=== PATIENT | male | born 1980 | race Caucasian/White ===

== ENCOUNTER 2022-04-25 08:33 | Observation (INO) ==
[2022-04-25] MEDS ORDERED: NITROGLYCERIN SL 0.4 MG/TAB TAB SL PRN (08:40)
[2022-04-25] MEDS ORDERED: ASPIRIN CHEW 324 MG PO STA (08:40)
[2022-04-25] MEDS ORDERED: ONDANSETRON INJ 2 MG/ML 2 ML VIAL IV STA (08:47)
[2022-04-25] MEDS ORDERED: HYDROmorphone INJ 0.5 MG/0.5 ML SYR IV STA (08:47)
[2022-04-25 09:05] LABS: Basophils # (auto) 0.01 K/uL (0-0.2); Basophils % (auto) 0.1 %; Eosinophils # (auto) 0.01 K/uL (0-0.5); Eosinophils % (auto) 0.1 %; Hematocrit (blood only) 43.8 % (42-52); Hemoglobin 14.9 g/dL (14.0-18.0); Immature Granulocytes # (auto) 0.03 K/uL (0.00-0.02); Immature Granulocytes % (auto) 0.3 %; Lymphocytes # (auto) 1.11 K/uL (1.2-3.4); Lymphocytes % (auto) 12.2 %; Mean Corpuscular Volume 85.4 fL (80-100); Mean Platelet Volume 9.6 fL (7.4-10.4); Monocytes % (auto) 5.5 %; Neutrophils # (auto) 7.41 K/uL (1.4-6.5); Neutrophils % (auto) 81.8 %; Platelet Count 221 K/uL (130-400); RDW Coefficient of Variation 12.6 % (11.5-14.5); RDW Standard Deviation 39.3 fL (36.4-46.3); Red Blood Count 5.13 M/uL (4.7-6.1); White Blood Count 9.07 K/uL (4.8-10.8)
[2022-04-25] MEDS ORDERED: OPTIRAY 320 125ml IV ONE (09:10)
[2022-04-25 09:26] LABS: Albumin Globulin Ratio 1.3 (0.9-2); Albumin Level 4.2 gm/dl (3.4-5.0); BUN Creatinine Ratio 17.1 (10-20); Bilirubin,Total 0.5 mg/dl (0.2-1.0); Calcium 9.7 mg/dl (8.5-10.1); Creatinine Clr Calc Pharmacy 133.7 ml/min; Est GFR (African American) 99.6 ml/min; Est GFR (Non-African American) 85.9 ml/min; Globulin 3.3 gm/dl (2.5-4.0); Total Protein 7.5 gm/dl (6.0-8.3)
--- NOTE | 2022-04-25 09:29 | CT Scan Report ---
CT ANGIOGRAPHY OF THE CHEST DISSECTION PROTOCOL CLINICAL HISTORY: Chest and abdominal pain. Hypertension. Evaluate for dissection. COMPARISON STUDY: No previous studies for comparison. TECHNIQUE: Before and following the IV administration of 118 mL of Optiray, helical axial images of t he chest were obtained. Maximal intensity projections and sagittal and coronal reformats were viewed on an independent 3D workstation. IV contrast was administered without complication. Automated exp osure control was utilized for the study. A dose lowering technique was utilized adhering to the fortunato Elaine. CT DOSE: 2443.73 mGy.cm FINDINGS: Caliber of the thoracic aorta is normal. There is no intramural hematoma or thoracic aorti c dissection. Size of the heart is normal. No pericardial effusion is present. No pulmonary emboli ar e identified although right upper lobe pulmonary arteries are suboptimally assessed due to artifact. Central airways are patent. Multiple small subpleural pulmonary nodules are likely benign. Minimal tr ee-in-bud nodules within the lungs are present. No consolidation is identified. No pneumothorax or pl eural effusion is present. No acute fracture or suspicious lesion within the bony thorax. There is le ft-sided gynecomastia. Probable hepatic steatosis. Gallbladder is partially imaged. The gallbladder m ay be mildly distended with subtle pericholecystic stranding. Upper abdomen is otherwise unremarkable . IMPRESSION: 1. No thoracic aortic dissection. 2. Minimal tree-in-bud nodules within the lungs. This may reflect bronchiolitis. 3. Possible pericholecystic stranding. Gallbladder partially imaged on this exam. Acute cholecystitis cannot be excluded. This can be assessed with right upper quadrant ultrasound which has been ordered . ACT 112: Negative or not required by law. Electronically signed by: Robert Barbour M.D. 04/25/2022 9:26 AM
[2022-04-25 09:31] LABS: Troponin I High Sensitivity 4.9 pg/ml (0-20)
--- NOTE | 2022-04-25 10:01 | Ultrasound Report ---
US gallbladder CLINICAL HISTORY: Epigastric pain to back COMPARISON STUDY: Chest CT performed earlier today. FINDINGS: Hepatic echogenicity is increased. No hepatic lesions are identified. There is no biliary d uctal dilatation. Common bile duct measures 5 mm in caliber. Multiple gallstones within the gallbladd er are noted. There is no gallbladder wall thickening. There is no pericholecystic fluid. Sonographic Glass sign was reported. Pancreas is partially obscured. No right hydronephrosis is present. IMPRESSION: 1. Cholelithiasis and sonographic Glass sign. These findings favor acute cholecystitis. No gallbladd er wall thickening. No pericholecystic fluid. 2. Hepatic steatosis. ACT 112: Negative or not required by law. Electronically signed by: Robert Barbour M.D. 04/25/2022 9:59 AM
--- NOTE | 2022-04-25 10:21 | XRay Report ---
XR chest 1V portable CLINICAL HISTORY: Chest Pain COMPARISON STUDY: Chest CT April 25, 2022 at 9:10 AM. FINDINGS: No pneumothorax or pleural effusion is noted. There is no consolidation or evidence for pul monary edema. Prominence of the cardiac silhouette and remainder of the mediastinum is likely technic al. IMPRESSION: No acute cardiopulmonary findings. ACT 112: Negative or not required by law. Electronically signed by: Robert Barbour M.D. 04/25/2022 10:19 AM
[2022-04-25] MEDS ORDERED: MoRPHine SULFATE 4 MG/ML 1 ML CARP\\VIAL IV STA (10:57)
[2022-04-25] MEDS ORDERED: ACETAMINOPHEN 1,000 MG/100 ML VIAL IV STA (10:58)
--- NOTE | 2022-04-25 11:38 | History & Physical Report ---
Date of Service April 25, 2022 Assessment & Plan (1) Acute cholecystitis due to biliary calculus: Plan: 42-year-old gentleman with acute cholecystitis. A long discussion with him concerning laparoscopic cholecystectomy, risks, benefits, postoperative course and restrictions. All his questions were answered, and he is agreeable to proceed. Consent has been obtained, and we will take him to the operating room at the earliest convenience. History of Present Illness Primary Care Provider: NO PCP 43-year-old gentleman presents with severe right upper quadrant pain radiating to his back. This began at 3:00 in the morning. He has been having a few week history of pain in his right upper quadrant which lasts for about an hour and then resolves. This pain has continued. He ate cheeseburgers last night. He did have chills and nausea but did not vomit. He denies changes in bowel habits. Ultrasound demonstrates positive Glass sign. White blood count is normal. Past Med/Surg History Social History Smoking Status: Never smoker Preferred Language: Upper Sorbian Feels Safe at Home: Yes Review of Systems Review of Systems: All systems reviewed & are unremarkable except as noted in HPI & below Physical Exam Constitutional: WD/WN, vitals as above Neck: trachea midline, no thyromegaly Respiratory: normal respiratory effort, lungs clear to auscultation Cardiovascular: RRR, no murmur, no edema Gastrointestinal (Abdomen): Inspection/Auscultation: abdomen normal to inspection; abdomen not distended Percussion/Palpation: + abdomen tender (RUQ) and abdomen soft; no guarding and abdomen not rigid Musculoskeletal: Extremities: no cyanosis and no clubbing Skin: no rashes, warm and dry Psychiatric: A+Ox3, euthymic affect Results & Data Results & Data ([facility]) Vital Signs (Past 12 Hours) Vital Signs Temp Pulse Pulse Resp BP BP Pulse Ox 04/25/22 10:30 56 L 20 131/82 96 04/25/22 09:06 78 19 134/89 97 04/25/22 08:40 20 98 04/25/22 08:37 36.4 C L 67 20 192/127 H 98 Laboratory Results 04/25/22 04/25/22 04/25/22 Range/Units 09:02 08:44 08:44 WBC 9.07 (4.8-10.8) K/uL RBC 5.13 (4.7-6.1) M/uL Hgb 14.9 (14.0-18.0) g/dL Hct 43.8 (42-52) % MCV 85.4 (80-100) fL MCH 29.0 (25-34) pg MCHC 34.0 (32-36) g/dL RDW Std Deviation 39.3 (36.4-46.3) fL RDW Coeff of Marylin 12.6 (11.5-14.5) % Plt Count 221 (130-400) K/uL MPV 9.6 (7.4-10.4) fL Immature Gran % (Auto) 0.3 % Neut % (Auto) 81.8 % Lymph % (Auto) 12.2 % Sutton % (Auto) 5.5 % Eos % (Auto) 0.1 % Baso % (Auto) 0.1 % Neut # (Auto) 7.41 H (1.4-6.5) K/uL Lymph # (Auto) 1.11 L (1.2-3.4) K/uL Sutton # (Auto) 0.50 (0.11-0.59) K/uL Eos # (Auto) 0.01 (0-0.5) K/uL Baso # (Auto) 0.01 (0-0.2) K/uL Immature Gran # (Auto) 0.03 H (0.00-0.02) K/uL Sodium 137 (136-145) mmol/L Potassium 4.0 (3.5-5.1) mmol/L Chloride 105 (98-107) mmol/L Carbon Dioxide 26 (21-32) mmol/L Anion Gap 6 (3-11) BUN 18 (6-23) mg/dl Creatinine 1.05 (0.6-1.4) mg/dl Est Cr Clr Drug Dosing 133.7 ml/min Est GFR ( Amer) 99.6 ml/min Est GFR (Non-Af Amer) 85.9 ml/min BUN/Creatinine Ratio 17.1 (10-20) Glucose 144 H (70-99(Fasting)) mg/dl Calcium 9.7 (8.5-10.1) mg/dl Total Bilirubin 0.5 (0.2-1.0) mg/dl AST 16 (13-39) U/L ALT 20 (7-52) U/L Alkaline Phosphatase 62 (34-104) U/L Troponin I High Sens 4.9 (0-20) pg/ml Total Protein 7.5 (6.0-8.3) gm/dl Albumin 4.2 (3.4-5.0) gm/dl Globulin 3.3 (2.5-4.0) gm/dl Albumin/Globulin Ratio 1.3 (0.9-2) Lipase 31 (11-82) U/L SARS-CoV-2, RNA, NAAT NEGATIVE (NEGATIVE) Diagnostic Findings US gallbladder CLINICAL HISTORY: Epigastric pain to back COMPARISON STUDY: Chest CT performed earlier today. FINDINGS: Hepatic echogenicity is increased. No hepatic lesions are identified. There is no biliary ductal dilatation. Common bile duct measures 5 mm in caliber. Multiple gallstones within the gallbladder are noted. There is no gallbladder wall thickening. There is no pericholecystic fluid. Sonographic Glass sign was reported. Pancreas is partially obscured. No right hydronephrosis is present. IMPRESSION: 1. Cholelithiasis and sonographic Glass sign. These findings favor acute cholecystitis. No gallbladder wall thickening. No pericholecystic fluid. 2. Hepatic steatosis.
[2022-04-25] MEDS ORDERED: EPINEPHrine INJ 1 MG/ML AMP ONE (11:42)
[2022-04-25] MEDS ORDERED: BUPIVACAINE 0.25% 30 ML VIAL ONE (11:42)
[2022-04-25] MEDS ORDERED: GLYCOPYRROLATE 0.2 MG/ML VIAL ONE (11:47)
[2022-04-25] MEDS ORDERED: ROCURONIUM BROMIDE 10 MG/ML 5 ML VIAL IV ONE ×2 (11:47→13:06)
[2022-04-25] MEDS ORDERED: ONDANSETRON INJ 2 MG/ML 2 ML VIAL ONE (11:47)
[2022-04-25] MEDS ORDERED: NEOSTIGMINE METHYLSULFATE 1 MG/ML 10ML VIAL ONE (11:47)
[2022-04-25] MEDS ORDERED: DEXAMETHASONE SOD INJ 4 MG/ML VIAL ONE (11:47)
[2022-04-25] MEDS ORDERED: MIDAZOLAM HCL 1 MG/ML 2ML VIAL ONE (11:47)
[2022-04-25] MEDS ORDERED: fentaNYL citrate 100 MCG/2 ML VIAL ONE ×2 (11:47→12:23)
[2022-04-25] MEDS ORDERED: PROPOFOL IV EMULSION 10 MG/ML 20 ML VIAL IV ONE (11:48)
[2022-04-25] MEDS ORDERED: LIDOCAINE 2% 2 ML VIAL/AMP(20MG/ML) INFIL ONE (11:48)
--- NOTE | 2022-04-25 11:51 | Anesthesiology Consultation ---
Date of Service April 25, 2022 Assessment & Plan (1) Encounter for pre-operative examination: Chart Review Chart Review: Acceptable Risk for Surgery History Surgery Operation Date: 04/25/22 12:00 Proposed Procedures p Laparoscopic Cholecystectomy - Justino Jimenez MD Height/Weight Height: 5 ft 11 in Weight: 150.2 kg Past Medical History Medical History (Updated 04/25/22 @ 11:52 by Dany Mahoney MD) Obesity Past Surgical History Surgical History (Updated 04/25/22 @ 11:52 by Dany Mahoney MD) No significant past surgical history Social History Smoking Status: Never smoker Physical Exam Vital Signs Last Vital Signs Temp 36.4 C L 04/25/22 08:37 Pulse 61 04/25/22 11:46 Resp 22 04/25/22 11:46 BP 116/73 04/25/22 11:46 Pulse Ox 94 04/25/22 11:46 Testing Laboratory Results 04/25/22 08:44 04/25/22 08:44 Electrocardiogram Date: 04/25/22 Findings: + NSR @ (60) Chest X-Ray Date: 04/25/22 Findings: + NAD
[2022-04-25] MEDS ORDERED: PROMETHAZINE HCL 12.5 MG in SODIUM CHLORIDE 0.9% 50 ML IV PRN ×2 (12:05→14:22)
[2022-04-25] MEDS ORDERED: KETOROLAC 30 MG/ML VIAL IV PRN (12:05)
[2022-04-25] MEDS ORDERED: ONDANSETRON INJ 2 MG/ML 2 ML VIAL IV PRN (12:05)
[2022-04-25] MEDS ORDERED: ATROPINE SULFATE 0.1 MG/ML 10ML SYR IV PRN (12:05)
[2022-04-25] MEDS ORDERED: fentaNYL citrate 100 MCG/2 ML VIAL IV PRN (12:05)
[2022-04-25] MEDS ORDERED: LABETALOL HCL IV 5 MG/ML 20ML IV PRN (12:05)
[2022-04-25] MEDS ORDERED: ceFAZolin 330 MG/ML 1 GM VIAL ONE (12:20)
[2022-04-25] MEDS ORDERED: KETOROLAC 30 MG/ML VIAL ONE (12:51)
--- NOTE | 2022-04-25 13:08 | Post Operative Brief Note ---
Immediate Post Op Note v1 Date of Surgery April 25, 2022 Pre & Post Diagnosis Operation Date: 04/25/22 12:00 Pre-Op Diagnosis: Acute cholecystitis due to biliary calculus Post-Op Diagnosis: Acute cholecystitis due to biliary calculus I identified the patient and participated in the time-out.: Yes Procedure Operation Date: 04/25/22 12:00 Actual Procedures p Laparoscopic Cholecystectomy - Justino Jimenez MD Surgeon Justino Jimenez MD Salesperson Burial Needs None Estimated Blood Loss 5 Findings Consistent with Post-Op Diagnosis Acute cholecystitis
--- NOTE | 2022-04-25 13:10 | Operative Report ---
Post Operative Report Pre & Post Diagnosis Operation Date: 04/25/22 12:00 Pre-Op Diagnosis: Acute cholecystitis due to biliary calculus Post-Op Diagnosis: Acute cholecystitis due to biliary calculus I identified the patient and participated in the time-out.: Yes Procedure Operation Date: 04/25/22 12:00 Actual Procedures p Laparoscopic Cholecystectomy - Justino Jimenez MD Surgeon Justino Jimenez MD Inside [employer] Sales None Estimated Blood Loss 5 Findings Consistent with Post-Op Diagnosis Acute cholecystitis with hydrops of the gallbladder Specimens Gallbladder Anesthesia Type General Complications No immediate complications Description of Procedure The patient was taken to the operating room, and placed supine on the operating table. A timeout was performed, perioperative antibiotics were administered, SCD boots were placed. After adequate anesthesia and analgesia was obtained, the abdomen was prepped and draped in the normal sterile fashion. Local anesthetic was injected into and around the proposed incision sites. An incision was made with a 15 blade scalpel in the supraumbilical region and carried down to the level of the fascia. The fascia was grasped with a trach hook, and a varies needle was used to enter the abdominal cavity. The abdomen was insufflated to a pressure of 15 mmHg, and a 11 mm trocar was placed in this location. A 10 mm, 30 degree laparoscope was placed into the abdominal cavity, and the abdomen was surveyed. There is a significant amount of omentum adhesed to the liver and gallbladder. Two 5 mm trochars were placed along the right costal margin, and one 5 mm trocar was placed in the subxiphoid region under direct visualization. Adhesions of the omentum to the liver and gallbladder were taken down with the hook cautery and blunt dissection. The gallbladder was significantly distended. It was drained with an 18-gauge aspiration needle of clear fluid. The gallbladder was grasped and retracted cephalad and laterally, exposing the triangle of Calot. Dissection began in the triangle with a combination of blunt dissection with the [place] dissector, and judicious use of the hook cautery. The cystic duct and cystic artery were dissected free circumferentially, and a critical view of safety was obtained. The cystic duct and cystic artery were clipped and transected, and the gallbladder was removed from the gallbladder fossa with the hook cautery. The camera was switched to a 5 mm, the gallbladder was placed in an Endo Catch bag, and removed via the supraumbilical port site. The camera was switched back to the 10 mm camera, and the abdomen was surveyed again. Hemostasis was checked and attended, and was excellent. The abdomen was copiously irrigated and suctioned free. Again hemostasis was checked and was excellent. All trochars were removed under direct visualization. The abdomen was desufflated. The fascia in the 11 mm port site was closed with a 0 Vicryl suture. The skin was closed with a running 4-0 Monocryl subcuticular stitch. Dermabond was applied. The patient tolerated the procedure without complication, and was transferred in stable condition to the PACU. All instrument, needle, and sponge counts were correct at the end of the case. I attest to the content of the Intraoperative Record and any orders documented therein. Any exceptions are noted below.
[2022-04-25] MEDS ORDERED: oxyCODONE/ACETAMINOPHEN 5mg/325mg TAB PO PRN (14:22)
[2022-04-25] MEDS ORDERED: diphenhydrAMINE Capsule 25 MG CAP PO PRN (14:22)
--- NOTE | 2022-04-25 14:24 | Anesthesiology Progress Note ---
Date of Service April 25, 2022 Anesthesia Post Procedure Vital Signs Vital Signs: Temp Pulse Pulse Resp BP BP Pulse Ox 04/25/22 13:50 36.4 C L 70 20 139/93 93 04/25/22 13:40 36.4 C L 61 17 134/86 96 04/25/22 13:30 63 16 142/87 H 99 04/25/22 13:20 36.1 C L 104 H 16 147/94 H 95 04/25/22 11:46 61 22 116/73 94 04/25/22 10:30 56 L 20 131/82 96 04/25/22 09:06 78 19 134/89 97 04/25/22 08:40 20 98 04/25/22 08:37 36.4 C L 67 20 192/127 H 98 Transfer of Care Handoff Completed per policy Notes Mental Status: alert / awake / arousable Patient Amnestic to Procedure: Yes Nausea / Vomiting: adequately controlled Pain: adequately controlled Airway Patency, RR, SpO2: stable & adequate BP & HR: stable & adequate Hydration State: stable & adequate Anesthetic Complications: no major complications apparent
[2022-04-25] MEDS: SODIUM CHLORIDE 0.9% 1000ML 1,000 ML IV SCH (14:52)
[2022-04-25] MEDS: MoRPHine SULFATE 2 MG/ML CARP IV PRN (20:37)
[2022-04-25] MEDS: ONDANSETRON INJ 2 MG/ML 2 ML VIAL IV PRN (22:42)
[2022-04-26] MEDS: MoRPHine SULFATE 2 MG/ML CARP IV PRN ×2 (01:59→12:15)
[2022-04-26] MEDS: SODIUM CHLORIDE 0.9% 1000ML 1,000 ML IV SCH ×2 (04:00→17:18)
[2022-04-26] MEDS: ENOXAPARIN INJ 40 MG/0.4 ML SYR SQ SCH (06:40)
[2022-04-26] MEDS: KETOROLAC 30 MG/ML VIAL IV PRN (07:29)
--- NOTE | 2022-04-26 08:52 | Surgery Progress Note ---
Date of Service April 26, 2022 Assessment & Plan (1) Acute cholecystitis due to biliary calculus: Plan: Postop day 1 status post lap irina for acute cholecystitis. He is doing fairly well. He denies an appetite. We will see how he does with breakfast and lunch. Encouraged him to ambulate this morning. We will plan on discharging him to home later this afternoon. We will have him return to clinic in 2 weeks. He will call with any new or concerning symptoms in the meantime. Admission and Anticipated Discharge Date Admission Date: April 25, 2022 Subjective Postop day 1 status post lap irina. He is doing fairly well. He did have some nausea last night. His pain is under control with pain medicine. He denies fevers or chills. He has tolerated a diet last evening. Physical Exam Constitutional: WD/WN, vitals as above Neck: trachea midline, no thyromegaly Gastrointestinal (Abdomen): Inspection/Auscultation: abdomen normal to inspection and + abdominal surgical incision (Clean dry intact with Dermabond); abdomen not distended Percussion/Palpation: + abdomen tender (Mild diffuse tenderness) and abdomen soft; no guarding and abdomen not rigid Skin: no rashes, warm and dry Psychiatric: A+Ox3, euthymic affect Results & Data ([facility]) Vital Signs (Past 12 Hours) Vital Signs Temp Pulse Resp BP Pulse Ox 04/26/22 07:11 36.7 C 65 16 150/89 H 93 04/26/22 02:45 36.9 C 63 16 166/98 H 93 04/25/22 22:25 37.1 C 69 16 156/95 H 95
[2022-04-26] MEDS: ONDANSETRON INJ 2 MG/ML 2 ML VIAL IV PRN (09:41)
--- NOTE | 2022-04-26 12:09 | Emergency Department Note ---
ED Provider Note CHIEF COMPLAINT: Epigastric/chest pain HISTORY OF PRESENT ILLNESS: This 42-year-old male patient presents to the emergency department with complaints of epigastric and mid chest pain that radiates through to the back. The patient is noted to be markedly hypertensive at triage however the patient does not take blood pressure medication. He s tates he has not seen a physician in several years. He and his state they are here visiting for the weekend. They have been clearing brush and riding ATVs. He denies any trauma and difficulty with exertion. Patient states they went to a movie last night, came home had hamburgers and Malagasy fries and went to bed. At approximately 3:00 in the morning he woke up with severe pain in the mid to upper abdomen rating up into the chest and back. He was nauseated but denied vomiting. He denies any blood in his stools. Patient denies any history of heart disease, diabetes. REVIEW OF SYSTEMS: A review of systems was performed with positives and pertinent negatives listed in the history of present illness. 10 systems were reviewed and are otherwise negative. ALLERGIES: see below MEDICATIONS: see below PMH: see below SOCIAL HISTORY: see below DDx:Appendicitis, diverticulitis, UTI, obstruction, mesenteric ischemia, aortic pathology, inflammatory bowel disease, renal colic, PUD, pancreatitis, biliary pathology, hernia, volvulus, constipation, as well as other pathologies. PHYSICAL EXAM: Vital signs reviewed. General: Well-appearing 2-year-old male, in no significant distress. HEENT: No scleral icterus, PERRLA, neck supple. Atraumatic. Cardiovascular: Regular rate and rhythm, no extra sounds. Pulmonary: Clear to auscultation bilaterally, normal work of breathing. Abdomen: Soft, tender to palpation in the right upper quadrant, nondistended, positive bowel sounds. Musculoskeletal: Atraumatic, no peripheral edema. Neurologic: Patient awake alert and oriented x 3, speech is clear Skin: Warm, dry, no rash EMERGENCY DEPARTMENT COURSE/MDM: [] MONITORING: An order for cardiac monitoring was placed and the patient is noted to be in a [] at [] beats per minute. RADIOLOGY: EKG: DISPOSITION: Past Med/Surg History Medical History (Updated 04/25/22 @ 11:52 by Dany Mahoney MD) Obesity Surgical History (Updated 04/25/22 @ 11:52 by Dany Mahoney MD) No significant past surgical history Social History Smoking Status: Former smoker Smoking End Date: Last smoked when he was 23 years old.; Second Hand Exposure: No; Do You Dip or Chew Tobacco: Yes (Current use.); Tobacco Cessation Education Requested by Patient: No Hx Alcohol Use: No Hx Substance Use: No Preferred Language: South Sudanese Communication Ability: Effective Certified Massage Therapist Required: No Beliefs That Will Affect Care: None Current Living Situation: Spouse and Family Other Information That Helps Us Care for You: No Feels Safe at Home: Yes Safety Concerns: Feels Safe At This Time Assistive Devices: None Allergies Allergies Allergy/AdvReac Type Severity Reaction Status Date / Time No Known Allergies Allergy Verified 04/25/22 12:26 Home Meds Previous Rx's Medication Instructions Recorded oxycodone-acetaminophen 5 mg-325 1 tab PO Q6H PRN #10 tab 04/26/22 mg tablet (Percocet) Results & Data (ED) Laboratory Data Result diagrams: 04/25/22 08:44 04/25/22 08:44 Lab Results 04/25/22 04/25/22 04/25/22 Range/Units 08:44 08:44 09:02 WBC 9.07 (4.8-10.8) K/uL RBC 5.13 (4.7-6.1) M/uL Hgb 14.9 (14.0-18.0) g/dL Hct 43.8 (42-52) % MCV 85.4 (80-100) fL MCH 29.0 (25-34) pg MCHC 34.0 (32-36) g/dL RDW Std Deviation 39.3 (36.4-46.3) fL RDW Coeff of Marylin 12.6 (11.5-14.5) % Plt Count 221 (130-400) K/uL MPV 9.6 (7.4-10.4) fL Immature Gran % (Auto) 0.3 % Neut % (Auto) 81.8 % Lymph % (Auto) 12.2 % King % (Auto) 5.5 % Eos % (Auto) 0.1 % Baso % (Auto) 0.1 % Neut # (Auto) 7.41 H (1.4-6.5) K/uL Lymph # (Auto) 1.11 L (1.2-3.4) K/uL King # (Auto) 0.50 (0.11-0.59) K/uL Eos # (Auto) 0.01 (0-0.5) K/uL Baso # (Auto) 0.01 (0-0.2) K/uL Immature Gran # (Auto) 0.03 H (0.00-0.02) K/uL Sodium 137 (136-145) mmol/L Potassium 4.0 (3.5-5.1) mmol/L Chloride 105 (98-107) mmol/L Carbon Dioxide 26 (21-32) mmol/L Anion Gap 6 (3-11) BUN 18 (6-23) mg/dl Creatinine 1.05 (0.6-1.4) mg/dl Est Cr Clr Drug Dosing 133.7 ml/min Est GFR ( Amer) 99.6 ml/min Est GFR (Non-Af Amer) 85.9 ml/min BUN/Creatinine Ratio 17.1 (10-20) Glucose 144 H (70-99(Fasting)) mg/dl Calcium 9.7 (8.5-10.1) mg/dl Total Bilirubin 0.5 (0.2-1.0) mg/dl AST 16 (13-39) U/L ALT 20 (7-52) U/L Alkaline Phosphatase 62 (34-104) U/L Troponin I High Sens 4.9 (0-20) pg/ml Total Protein 7.5 (6.0-8.3) gm/dl Albumin 4.2 (3.4-5.0) gm/dl Globulin 3.3 (2.5-4.0) gm/dl Albumin/Globulin Ratio 1.3 (0.9-2) Lipase 31 (11-82) U/L SARS-CoV-2, RNA, NAAT NEGATIVE (NEGATIVE) Administered Medications Enoxaparin Sodium (Enoxaparin Inj 40 Mg/0.4 Ml Syr) 40 mg SQ Q24H [facility] Stop: 05/26/22 06:59 Last Admin: 04/26/22 06:40 Dose: 40 mg Documented by: [id number] Sodium Chloride (Nss 1000ml) 1,000 mls @ 75 mls/hr IV .[id number] [facility] Stop: 05/25/22 14:21 Last Admin: 04/26/22 04:00 Dose: 75 mls/hr Documented by: [id number] Infusion: 04/26/22 04:00 Dose: 75 mls/hr Documented by: [id number] Admin: 04/25/22 14:52 Dose: 75 mls/hr Documented by: [id number] Ketorolac Tromethamine (Ketorolac 30 Mg/Ml Vial) 30 mg IV Q6H PRN PRN Reason: Pain & Pre PT Stop: 04/30/22 14:21 Last Admin: 04/26/22 07:29 Dose: 30 mg Documented by: [id number] Morphine Sulfate (Morphine Sulfate 2 Mg/Ml Carp) 2 mg IV Q3H PRN PRN Reason: Pain (1,2,3,4,5) & Pre PT Stop: 05/09/22 14:21 Last Admin: 04/26/22 01:59 Dose: 2 mg Documented by: [id number] Admin: 04/25/22 20:37 Dose: 2 mg Documented by: [id number] Ondansetron HCl (Ondansetron Inj 2 Mg/Ml 2 Ml Vial) 4 mg IV Q4H PRN PRN Reason: Nausea And Vomiting Stop: 05/25/22 14:21 Last Admin: 04/26/22 09:41 Dose: 4 mg Documented by: [id number] Admin: 04/25/22 22:42 Dose: 4 mg Documented by: [id number] Discontinued Medications Aspirin (Aspirin Chew 324 Mg) 324 mg PO NOW STA Stop: 04/25/22 08:41 Last Admin: 04/25/22 09:08 Dose: Not Given Documented by: [id number] Bupivacaine HCl (Bupivacaine 0.25% 30 Ml Vial) Confirm Administered Dose 30 ml .ROUTE .STK-MED ONE Stop: 04/25/22 11:43 Last Admin: 04/25/22 13:00 Dose: 30 ml Documented by: [id number] Epinephrine HCl (Epinephrine Inj 1 Mg/Ml Amp) Confirm Administered Dose 1 mg .ROUTE .STK-MED ONE Stop: 04/25/22 11:43 Last Admin: 04/25/22 13:00 Dose: 1 mg Documented by: [id number] Hydromorphone HCl (Hydromorphone Inj 0.5 Mg/0.5 Ml Syr) 0.5 mg IV NOW STA Stop: 04/25/22 08:48 Last Admin: 04/25/22 09:18 Dose: 0.5 mg Documented by: [id number] Acetaminophen (Ofirmev) 1,000 mg in 100 mls @ 400 mls/hr IV NOW STA Stop: 04/25/22 11:12 Last Infusion: 04/25/22 11:47 Dose: 0 mls/hr Documented by: [id number] Admin: 04/25/22 11:27 Dose: 400 mls/hr Documented by: [id number] Cefazolin Sodium (Ancef 3000mg) 72.5 mls @ 130 mls/hr IV ONCE ONE Stop: 04/25/22 13:37 Last Infusion: 04/25/22 14:05 Dose: 0 mls/hr Documented by: [id number] Admin: 04/25/22 12:22 Dose: 130 mls/hr Documented by: [id number] Ioversol (Optiray 320 125ml) 118 ml IV ONCE ONE Stop: 04/25/22 09:11 Last Admin: 04/25/22 09:14 Dose: 118 ml Documented by: [id number] Morphine Sulfate (Morphine Sulfate 4 Mg/Ml 1 Ml Carp\Vial) 4 mg IV NOW STA Stop: 04/25/22 10:58 Last Admin: 04/25/22 11:27 Dose: 4 mg Documented by: [id number] Ondansetron HCl (Ondansetron Inj 2 Mg/Ml 2 Ml Vial) 4 mg IV NOW STA Stop: 04/25/22 08:48 Last Admin: 04/25/22 09:18 Dose: 4 mg Documented by: [id number] Discharge Plan Visit Data Chief Complaint: Chest Pain Stated Complaint: CHEST PAIN ED Provider: Taylro Araya Patient Disposition: Admitted As Inpatient Discharge Instructions Interventions: ED Discharge Assessment Last Done: 04/25/22 11:46
--- NOTE | 2022-04-27 05:55 | Electrocardiogram Report ---
Test Reason : Blood Pressure : / mmHG Vent. Rate : 060 BPM Atrial Rate : 060 BPM P-R Int : 158 ms QRS Dur : 098 ms QT Int : 404 ms P-R-T Axes : 075 027 024 degrees QTc Int : 404 ms Normal sinus rhythm Normal ECG No previous ECGs available Confirmed by Km Hernandez ([id number]) on 04/27/2022 5:54:52 AM Referred By: REFERRED SELF Confirmed By:Km Hernandez
[2022-04-27] MEDS: SODIUM CHLORIDE 0.9% 1000ML 1,000 ML IV SCH (06:25)
[2022-04-27] MEDS: ENOXAPARIN INJ 40 MG/0.4 ML SYR SQ SCH (06:26)
[2022-04-27] MEDS: KETOROLAC 30 MG/ML VIAL IV PRN (08:03)
[2022-04-27 09:53] LABS: iSTAT Hemoglobin 14.6 g/dl (14.0-18.0); iSTAT Ionized Calcium 1.29 mmol/l (1.12-1.32)
--- NOTE | 2022-04-27 11:42 | Discharge Summary ---
Date of Service April 27, 2022 Admission HPI Per Admitting Provider 43-year-old gentleman presents with severe right upper quadrant pain radiating to his back. This began at 3:00 in the morning. He has been having a few week history of pain in his right upper quadrant which lasts for about an hour and then resolves. This pain has continued. He ate cheeseburgers last night. He did have chills and nausea but did not vomit. He denies changes in bowel habits. Ultrasound demonstrates positive Glass sign. White blood count is normal. Principal Diagnosis Acute cholecystitis Discharge Exam Constitutional WD/WN, vitals as above + obese; no acute distress and not ill appearing Gastrointestinal (Abdomen) Inspection/Auscultation: abdomen normal to inspection and + abdominal surgical incision (clean,dry,intact with dermabond); abdomen not distended Percussion/Palpation: + abdomen tender (at incision sites) and abdomen soft; no guarding and abdomen not rigid Skin no rashes, warm and dry Discharge Data Allergies Allergy/AdvReac Type Severity Reaction Status Date / Time No Known Allergies Allergy Verified 04/25/22 12:26 Consultations 04/25/22 12:13 ED Decision to Admit Stat Procedures Performed Operation Date: 04/25/22 12:00 Actual Procedures p Laparoscopic Cholecystectomy - Justino Jimenez MD Ordered Studies 04/25/22 08:43 CT angio chest dissec wo/w con Stat 04/25/22 08:48 US gallbladder Stat Hospital Course (1) Acute cholecystitis due to biliary calculus: Patient was taken to operating room for laparoscopic cholecystectomy by Dr. Jimenez. Patient tolerated procedure well and was transferred to recovery then to medical/surgical floor for postop care. His diet was advanced as tole rated. PO Percocet with IV morphine prn pain. Activity as tolerated. POD # 1 patient was doing well other than some nausea postop. He was kept overnight on POD # 1 for pain and antiemetics as needed. POD # 2, afebrile, vitals stable, pain better controlled. Tolerated diet. Patient was discharged home on POD # 2 in stable condition. Total Time Total Time Spent Total Time Spent (In Minutes): 30 minutes Total Time Includes: Examination of the Patient, Discharge Planning and Medication Reconciliation Discharge Plan Discharge Items Patient Disposition: Home - Self-Care Reason For Visit: S/P LAP ROSARIO Discharge Diagnosis: Status post lap rosario Activity: Per Instructions section Lifting: No more than 25 pounds Sexual Activity: Wait until after follow-up appointment Exercise/Sports: Wait until after follow-up appointment Non-emergency contact: Surgeon Call non-emergency contact if: you have any medication questions, your symptoms worsen, your pain is not controlled, your pain is worsening, your pain is unusual for you, your pain is concerning for you, your temperature is above 101.5, your wound has increased redness, your wound has increased drainage and your wound pain has increased Follow-up/Referrals: Justino Jimenez MD [Physician] - 05/06/22 9:45 am PCP,NO [Primary Care Provider] - Diet: Regular Addtl Attending Provider Instructions: Post-Surgical ~Discharge Instructions Activity Recommendations: - lifting limitation: (20 pounds for 2 weeks), - exercise/sex/sports limit: (nonstrenuous for 2 weeks), - driving or machine use limit: (none for 1 week), - Shower/bathe limit: (may shower beginning tomorrow) Diet: - Resume previous diet SPECIAL CARE INSTRUCTIONS: - May shower in 24 hours. Let water run over area and pat dry. - Leave Dermabond in place. - Call the surgeon's office with any questions or concerns - - (ex. temperature higher than 101 degrees F, excessive bleeding or pain). MEDICATIONS: - Resume previous medications unless instructed otherwise by your surgeon. - Ibuprofen 600 mg every 6 hours with food - Percocet 1 every 4 hours, as needed for pain FOLLOW UP VISIT: - If not already scheduled, please call the office to schedule a two week follow-up appointment. Office number Pending Studies at Discharge: No Stand-Alone Forms: My [employer], Opioid Pain Management, Smoking Cessation Medications and DC Order Prescriptions: New oxycodone-acetaminophen [Percocet] 5-325 mg tablet 1 tab PO Q6H PRN (Reason: pain) Qty: 10 RF: 0 Discharge Orders: Discharge Order (Routine); Ordered 04/27/22 Ordered By: Ellen Amanda/Other Patient Handouts: DVT Post Op Prevention, Cholecystectomy Admission Data Admit Date/Time: 04/25/22 13:13 Attending Provider: Justino Jimenez Admit Provider: Justino Jimenez Primary Care Provider: PCP,NO Other Providers: Justino Jimenez Other Interventions: Discharge Summary Assessment (RN) Last Done: 04/27/22 10:46
== END 2022-04-27 12:00 | disposition home or self-care (01) ==
LOC: ED 08:33 → ASU 12:33 → 3W 12:33